=== PATIENT | female | born 1995 | race Caucasian/White ===

== ENCOUNTER → 2016-09-01 | Outpatient (CLI) | payer OTHER ==
[2016-07-07 09:24] VITALS: BP 101/57
[~2016-09-01] MED LIST: KETO10TA PO; ONDA4TAB10 SL; OXYC10TA PO
[2016-09-01 17:25] LABS: FREE T4 1.01 ng/dL (0.76-1.46)
== END | disposition home or self-care (01) ==
LOC: LAB 16:06
PROVIDERS: ATTEND Obstetrics & Gynecology
DX: N76.0 Acute vaginitis (principal)
CPT/HCPCS: 36415; 84439; 84443

== ENCOUNTER → 2016-09-30 | Outpatient (CLI) | payer OTHER ==
[2016-07-07 09:24] VITALS: BP 101/57
[2016-09-30 10:45] LABS: BASO % 0 % (0-3); EOS % 1 % (0-3); HEMOGLOBIN 14.5 g/dL (12.0-15.5); LYMPH # 2.3 x10^3/uL (1.0-4.8); LYMPH % 35 % (24-48); MEAN CORPUSCULAR HEMOGLOBIN 30 pg (25-35); MEAN CORPUSCULAR HGB CONC 34 g/dL (31-37); MEAN CORPUSCULAR VOLUME 87 fL (79-100); MONO % 5 % (0-9); NEUT % 59 % (31-73); PLATELET COUNT 228 x10^3/uL (140-400); RED BLOOD COUNT 4.92 x10^6/uL (3.50-5.40); RED CELL DISTRIBUTION WIDTH 12.9 % (11.5-14.5); WHITE BLOOD COUNT 6.7 x10^3/uL (4.0-11.0)
[2016-09-30 11:10] LABS: ALBUMIN 4.1 g/dL (3.4-5.0); ALBUMIN/GLOBULIN RATIO 1.1 (1.0-1.7); CALCIUM 9.3 mg/dL (8.5-10.1); CREATININE 0.8 mg/dL (0.6-1.0); GFR 90.5; POTASSIUM 4.2 mmol/L (3.5-5.1); TOTAL BILIRUBIN 0.6 mg/dL (0.2-1.0); TOTAL PROTEIN 7.9 g/dL (6.4-8.2)
== END | disposition home or self-care (01) ==
LOC: LAB 10:03
PROVIDERS: ATTEND Family Medicine
DX: F41.9 Anxiety disorder, unspecified (principal)
CPT/HCPCS: 36415; 80053; 85027

== ENCOUNTER → 2017-08-08 | Outpatient (CLI) | payer OTHER | END | disposition home or self-care (01) | LOC: US 10:22 | DX: O26.842 Uterine size-date discrepancy, second trimester (principal); Z3A.17 17 weeks gestation of pregnancy | CPT/HCPCS: 76805 ==

== ENCOUNTER → 2017-10-04 | Outpatient (CLI) | payer OTHER ==
[2017-10-04 11:05] LABS: ADD MAN DIFF? NO
[2017-10-04 11:17] LABS: BASO % 0 % (0-3); EOS % 0 % (0-3); HEMATOCRIT 32.5 % (36.0-47.0); HEMOGLOBIN 10.9 g/dL (12.0-15.5); LYMPH # 1.4 x10^3/uL (1.0-4.8); LYMPH % 18 % (24-48); MEAN CORPUSCULAR HEMOGLOBIN 30 pg (25-35); MEAN CORPUSCULAR HGB CONC 33 g/dL (31-37); MEAN CORPUSCULAR VOLUME 90 fL (79-100); MONO # 0.4 x10^3/uL (0.0-1.1); MONO % 5 % (0-9); NEUT # 6.1 x10^3uL (1.8-7.7); NEUT % 77 % (31-73); PLATELET COUNT 144 x10^3/uL (140-400); RED BLOOD COUNT 3.62 x10^6/uL (3.50-5.40); RED CELL DISTRIBUTION WIDTH 14.2 % (11.5-14.5); WHITE BLOOD COUNT 7.9 x10^3/uL (4.0-11.0)
== END | disposition home or self-care (01) ==
LOC: US 09:11
DX: O09.92 Supervision of high risk pregnancy, unspecified, second trimester (principal); O26.842 Uterine size-date discrepancy, second trimester; Z3A.26 26 weeks gestation of pregnancy
CPT/HCPCS: 36415; 76805; 82950; 85025

== ENCOUNTER → 2018-04-02 | Outpatient (CLI) | payer OTHER ==
[2018-01-17 14:00] VITALS: BP 114/62
[~2018-04-02] MED LIST changes: +IBUP800T19 PO; +OXYC1TAB7 PO; +PREN1TAB PO; +PREN1TAB58 PO
== END | disposition home or self-care (01) ==
LOC: LAB 15:43
PROVIDERS: ATTEND Obstetrics & Gynecology
DX: N91.1 Secondary amenorrhea (principal); F41.9 Anxiety disorder, unspecified; F32.9 Major depressive disorder, single episode, unspecified; Z79.899 Other long term (current) drug therapy; Z88.8 Allergy status to other drugs, medicaments and biological substances
CPT/HCPCS: 36415; 84144; 84702

== ENCOUNTER → 2018-04-25 | Outpatient (CLI) | payer OTHER ==
[2018-01-17 14:00] VITALS: BP 114/62
[2018-04-25 16:43] LABS: BASO % 0 % (0-3); EOS % 0 % (0-3); HEMATOCRIT 33.7 % (36.0-47.0); HEMOGLOBIN 11.4 g/dL (12.0-15.5); LYMPH # 1.1 x10^3/uL (1.0-4.8); LYMPH % 17 % (24-48); MEAN CORPUSCULAR HEMOGLOBIN 29 pg (25-35); MEAN CORPUSCULAR HGB CONC 34 g/dL (31-37); MEAN CORPUSCULAR VOLUME 85 fL (79-100); MONO # 0.4 x10^3/uL (0.0-1.1); MONO % 6 % (0-9); NEUT # 5.2 x10^3uL (1.8-7.7); NEUT % 77 % (31-73); PLATELET COUNT 199 x10^3/uL (140-400); RED BLOOD COUNT 3.98 x10^6/uL (3.50-5.40); RED CELL DISTRIBUTION WIDTH 13.7 % (11.5-14.5); WHITE BLOOD COUNT 6.7 x10^3/uL (4.0-11.0)
[2018-04-25 16:52] LABS: BILIRUBIN,URINE NEGATIVE (NEG); CLARITY,URINE CLEAR; COLOR,URINE YELLOW; NITRITE,URINE NEGATIVE (NEG); PROTEIN,URINE NEGATIVE (NEG-TRACE); UROBILINOGEN,URINE 0.2 mg/dL (0.2 mg/dL)
[2018-04-25 17:07] LABS: BACTERIA,URINE FEW /HPF (0-FEW); RBC,URINE 0 /HPF (0-2); SQUAMOUS EPITHELIAL CELL,UR FEW /LPF; WBC,URINE 0 /HPF (0-4)
== END | disposition home or self-care (01) ==
LOC: LAB 16:02
PROVIDERS: ATTEND Family Medicine
DX: Z32.01 Encounter for pregnancy test, result positive (principal)
CPT/HCPCS: 36415; 81001; 85025; 86592; 86703; 86706; 86762; 86850; 86900; 86901; 87340

== ENCOUNTER → 2018-07-05 | Outpatient (CLI) | payer OTHER ==
[2018-01-17 14:00] VITALS: BP 114/62
--- NOTE | 2018-07-05 10:04 | RAD ---
Indication:SIZE AND DATE DISCREPANCY TECHNIQUE: Ultrasound OB more than or equal to 14 weeks. COMPARISON: Previous exam from 01/06/2018. FINDINGS: Single intrauterine seen in cephalic presentation. The cervical length measures 5 cm and is closed. Placenta is fundal and anterior in location. The femoral length measures 3.1 cm corresponding to gestation age of 19 weeks 5 days. The biparietal diameter measures 4.7 cm corresponding to gestation age of 20 weeks 1 day. The head circumference measures 17.1 cm corresponding to gestation age of 19 weeks 5 days. Abdominal circumference measures 13.8 cm corresponding to gestation age of 19 weeks 2 days. Heart rate 137 bpm. Bilateral kidneys are seen. Three-vessel cord insertion is seen. Bladder is seen. Three-vessel cord is seen. Spine is seen. Face is seen. Estimated weight of 297 g +/- 44 g. IMPRESSION: Single live viable intrauterine with estimated gestation age of 19 weeks 5 days and due date of 11/24/2018. Electronically signed by: Michael Ortiz DO (07/05/2018 10:00 AM) [facility]
== END | disposition home or self-care (01) ==
LOC: US 09:25
PROVIDERS: ATTEND Obstetrics & Gynecology
DX: O26.842 Uterine size-date discrepancy, second trimester (principal); Z3A.19 19 weeks gestation of pregnancy
CPT/HCPCS: 76805

== ENCOUNTER → 2018-09-05 | Outpatient (CLI) | payer OTHER ==
[2018-01-17 14:00] VITALS: BP 114/62
[~2018-09-05] MED LIST changes: +DOCU-109 PO
[2018-09-05 14:42] LABS: BASO % 0 % (0-3); EOS # 0.1 x10^3/uL (0.0-0.7); EOS % 1 % (0-3); HEMATOCRIT 28.6 % (36.0-47.0); HEMOGLOBIN 9.6 g/dL (12.0-15.5); LYMPH # 1.5 x10^3/uL (1.0-4.8); LYMPH % 21 % (24-48); MEAN CORPUSCULAR HEMOGLOBIN 29 pg (25-35); MEAN CORPUSCULAR HGB CONC 34 g/dL (31-37); MEAN CORPUSCULAR VOLUME 87 fL (79-100); MONO # 0.5 x10^3/uL (0.0-1.1); MONO % 6 % (0-9); NEUT # 5.4 x10^3uL (1.8-7.7); NEUT % 73 % (31-73); PLATELET COUNT 178 x10^3/uL (140-400); RED BLOOD COUNT 3.29 x10^6/uL (3.50-5.40); RED CELL DISTRIBUTION WIDTH 12.9 % (11.5-14.5); WHITE BLOOD COUNT 7.5 x10^3/uL (4.0-11.0)
== END | disposition home or self-care (01) ==
LOC: LAB 12:52
PROVIDERS: ATTEND Obstetrics & Gynecology
DX: O09.93 Supervision of high risk pregnancy, unspecified, third trimester (principal); Z3A.28 28 weeks gestation of pregnancy
CPT/HCPCS: 36415; 82950; 85025

== ENCOUNTER 2018-11-21 22:32 | Inpatient (IN) | payer OTHER ==
[~2018-11-21] VITALS: Ht 160 cm; Wt 75.3 kg
[~2018-11-21 22:32] MED LIST changes: -DOCU-109 PO; +L&D EPIDURAL 50 ML SYRINGE. ONE; +OXYTOCIN PREMIX 30 UNIT/500 ML BAG. IV ONE; +ROPIVacaine 0.2% PF 10 ML VIAL. ONE
[2018-11-21] MEDS: IV RINGERS,LACTATED 1000ML 1,000 ML IV SCH (23:00)
[2018-11-21] MEDS ORDERED: TERBUTALINE 1 MG/ML VIAL. SQ PRN (23:00)
[2018-11-21] MEDS ORDERED: OXYTOCIN 30 UNIT/500 ML PREMIX 500 ML IV PRN (23:00)
[2018-11-21] MEDS ORDERED: 0.9 % SODIUM CHLORIDE 10 ML DISP.SYRIN. IV PRN (23:00)
[2018-11-21] MEDS ORDERED: NALBUPHINE 10 MG/ML AMPUL. IV PRN (23:00)
[2018-11-21] MEDS ORDERED: fentaNYL PF VIAL 100 MCG/2 ML VIAL IV PRN (23:00)
[2018-11-21] MEDS ORDERED: LIDOCAINE 1% PF 30 ML VIAL. INJ PRN (23:00)
[2018-11-21 23:20] LABS: BASO % 0 % (0-3); EOS % 0 % (0-3); HEMATOCRIT 30.4 % (36.0-47.0); LYMPH # 1.4 x10^3/uL (1.0-4.8); LYMPH % 13 % (24-48); MEAN CORPUSCULAR HEMOGLOBIN 26 pg (25-35); MEAN CORPUSCULAR HGB CONC 33 g/dL (31-37); MEAN CORPUSCULAR VOLUME 81 fL (79-100); MONO # 0.7 x10^3/uL (0.0-1.1); MONO % 6 % (0-9); NEUT # 9.1 x10^3uL (1.8-7.7); NEUT % 81 % (31-73); PLATELET COUNT 159 x10^3/uL (140-400); RED BLOOD COUNT 3.77 x10^6/uL (3.50-5.40); RED CELL DISTRIBUTION WIDTH 15.1 % (11.5-14.5); WHITE BLOOD COUNT 11.2 x10^3/uL (4.0-11.0)
[2018-11-21] MEDS ORDERED: ONDANSETRON PF 4 MG/2 ML VIAL. IV PRN (23:30)
[2018-11-21] MEDS ORDERED: L&D EPIDURAL SYRINGE 50 ML ONE (23:56)
[2018-11-21] MEDS ORDERED: ROPIVacaine 0.2% PF 10 ML VIAL. ONE (23:56)
[2018-11-22] MEDS: IV RINGERS,LACTATED 1000ML 1,000 ML IV SCH ×6 (00:16→23:00)
[2018-11-22] MEDS ORDERED: ROPIVacaine 0.2% IN 0.9%NACL PF 40 MG/20 ML DISP.SYRIN. EPI PRN (00:30)
[2018-11-22] MEDS ORDERED: ePHEDrine PF IN SALINE 50 MG/10 ML SYRINGE. IV PRN (00:30)
[2018-11-22] MEDS ORDERED: L&D EPIDURAL CASSETTE 100 ML EPID PRN (00:30)
[2018-11-22] MEDS ORDERED: NALOXONE 0.4 MG/ML VIAL. IV PRN (00:30)
[2018-11-22 02:00] VITALS: BP 127/84
--- NOTE | 2018-11-22 03:11 | PDOC1 ---
OB - History Hx of Present Care: Good Care Ultrasounds: Normal mid trimester US Obstetrical Complications: None Medical Complications: None Past Family/Social History * Past Medical, Surgical, Family and Obstetric Histories reviewed from chart. Rubella: Immune RPR/VDRL: Negative GBS Status: Negative HBsAG: Negative OB - Chief Complaint & HPI Date of Admission: Date of Admission: November 21, 2018 at 22:32 Chief Complaint/History : 2 Para: 1 EGA: 39 Reason for admission: active labor Admission Nurse Assessment Rev: Yes OB - Admission Exam Physical Exam Vitals: VS - Last 72 Hours, by Label Date Time Temp Pulse Resp B/P (MAP) Pulse Ox O2 Delivery O2 Flow Rate FiO2 11/21/18 23:34 Room Air HEENT: Normal Heart: Regular Rate Lungs: Clear Abdomen: Gravid, Non tender, Soft Extremities: Edema Reflexes: Normal Cervical Dilatation: 7cm Effacement: 75% Station: -2 Membranes: Intact Heart Rate: Normal Accelerations: Accelerations Present Decelerations: No decelerations Contractions on Admission: < 5 Minutes Apart Intensity: Firm Text A: 39 wks IUP Active labor P: Admit for labor management. COLIN PARK Jr, MD November 22, 2018 03:11
--- NOTE | 2018-11-22 03:13 | PDOC ---
VAGINAL DELIVERY DATE DATE: 11/22/18 TIME: 03:12 : 2 Para: 2 EGA: 39 VAGINAL DELIVERY: VTX VACCUM ASSISTED: No PLACENTA: Spontaneous 9/9 SEX: Female WEIGHT Weight [ 3580 gm] Nuchal Cord: No Amniotic Fluid: Thin Meconium PAIN: Epidural EPISIOTOMY: No EXTENSION: Yes (2nd degree midline laceration) REPAIRED WITH 2-0 vicryl EBL 300 ml COMPLICATIONS none CONDITION pt. stable Signs of Intrauterine Infectio: None Shoulder Dystocia: No COLIN PARK Jr, MD November 22, 2018 03:13
[2018-11-22] MEDS ORDERED: PHENYLEPH/MINERAL OIL/PETROLAT RECTAL OINTMENT 28GM TUBE. RC PRN (03:15)
[2018-11-22] MEDS ORDERED: BENZOCAINE 20% TOPICAL AEROSOL SPRAY 57GM CAN. TP PRN (03:15)
[2018-11-22] MEDS ORDERED: OXYTOCIN 30 UNIT/500 ML PREMIX 500 ML IV PRN (03:15)
[2018-11-22] MEDS ORDERED: ACETAMINOPHEN 325 MG TABLET. PO PRN (03:15)
[2018-11-22] MEDS ORDERED: MAG HYDROX/ALUMINUM HYD/SIMETH 30 ML ORAL.SUSP PO PRN (03:15)
[2018-11-22] MEDS ORDERED: diphenhydrAMINE HCL 25 MG CAPSULE PO PRN (03:15)
[2018-11-22] MEDS ORDERED: MMR per PROTOCOL. MC PRN (03:15)
[2018-11-22] MEDS ORDERED: 0.9 % SODIUM CHLORIDE 10 ML DISP.SYRIN. IV PRN (03:15)
[2018-11-22] MEDS ORDERED: HYDROCORTISONE 1% TOPICAL OINTMENT 30GM TUBE. TP PRN (03:15)
[2018-11-22] MEDS ORDERED: SIMETHICONE 80 MG TAB.CHEW PO PRN (03:15)
[2018-11-22] MEDS ORDERED: ZOLPIDEM 5 MG TABLET. PO PRN (03:15)
[2018-11-22 06:20] VITALS: BP 96/60
[2018-11-22] MEDS: oxyCODONE/APAP 5/325 1 TAB TABLET PO PRN ×2 (14:30→22:08)
[2018-11-22] MEDS: DOCUSATE SODIUM 100 MG CAPSULE. PO PRN (17:34)
[2018-11-22] MEDS: IBUPROFEN 400 MG TABLET. PO PRN (17:34)
[2018-11-22 22:30] VITALS: BP 103/66
[2018-11-23] MEDS: IV RINGERS,LACTATED 1000ML 1,000 ML IV SCH ×6 (00:30→23:00)
[2018-11-23] MEDS: oxyCODONE/APAP 5/325 1 TAB TABLET PO PRN ×4 (00:31→22:06)
[2018-11-23] MEDS: IBUPROFEN 400 MG TABLET. PO PRN ×3 (04:10→22:06)
[2018-11-23 05:15] LABS: BASO % 0 % (0-3); EOS # 0.1 x10^3/uL (0.0-0.7); EOS % 1 % (0-3); HEMOGLOBIN 10.4 g/dL (12.0-15.5); LYMPH # 2.2 x10^3/uL (1.0-4.8); LYMPH % 23 % (24-48); MEAN CORPUSCULAR HEMOGLOBIN 27 pg (25-35); MEAN CORPUSCULAR HGB CONC 33 g/dL (31-37); MEAN CORPUSCULAR VOLUME 82 fL (79-100); MONO # 0.5 x10^3/uL (0.0-1.1); MONO % 5 % (0-9); NEUT # 6.8 x10^3uL (1.8-7.7); NEUT % 71 % (31-73); PLATELET COUNT 158 x10^3/uL (140-400); WHITE BLOOD COUNT 9.6 x10^3/uL (4.0-11.0)
[2018-11-23 05:57] VITALS: BP 100/75
--- NOTE | 2018-11-23 08:27 | PDOC ---
OB Progress Note Date of Service 11/23/18 Time of Evaluation 0825 Notes Pt. feeling well. Pain controlled. Breast feeding. Lab Laboratory Tests Test 11/21/18 11:05 11/23/18 05:00 White Blood Count 11.2 x10^3/uL (4.0-11.0) 9.6 x10^3/uL (4.0-11.0) Red Blood Count 3.77 x10^6/uL (3.50-5.40) 3.80 x10^6/uL (3.50-5.40) Hemoglobin 10.0 g/dL (12.0-15.5) 10.4 g/dL (12.0-15.5) Hematocrit 30.4 % (36.0-47.0) 31.0 % (36.0-47.0) Mean Corpuscular Volume 81 fL (79-100) 82 fL (79-100) Mean Corpuscular Hemoglobin 26 pg (25-35) 27 pg (25-35) Mean Corpuscular Hemoglobin Concent 33 g/dL (31-37) 33 g/dL (31-37) Red Cell Distribution Width 15.1 % (11.5-14.5) 15.0 % (11.5-14.5) Platelet Count 159 x10^3/uL (140-400) 158 x10^3/uL (140-400) Neutrophils (%) (Auto) 81 % (31-73) 71 % (31-73) Lymphocytes (%) (Auto) 13 % (24-48) 23 % (24-48) Monocytes (%) (Auto) 6 % (0-9) 5 % (0-9) Eosinophils (%) (Auto) 0 % (0-3) 1 % (0-3) Basophils (%) (Auto) 0 % (0-3) 0 % (0-3) Neutrophils # (Auto) 9.1 x10^3uL (1.8-7.7) 6.8 x10^3uL (1.8-7.7) Lymphocytes # (Auto) 1.4 x10^3/uL (1.0-4.8) 2.2 x10^3/uL (1.0-4.8) Monocytes # (Auto) 0.7 x10^3/uL (0.0-1.1) 0.5 x10^3/uL (0.0-1.1) Eosinophils # (Auto) 0.0 x10^3/uL (0.0-0.7) 0.1 x10^3/uL (0.0-0.7) Basophils # (Auto) 0.0 x10^3/uL (0.0-0.2) 0.0 x10^3/uL (0.0-0.2) Treponema pallidum Antibody Nonreactive (Nonreactive) Laboratory Tests Test 11/23/18 05:00 White Blood Count 9.6 x10^3/uL (4.0-11.0) Red Blood Count 3.80 x10^6/uL (3.50-5.40) Hemoglobin 10.4 g/dL (12.0-15.5) Hematocrit 31.0 % (36.0-47.0) Mean Corpuscular Volume 82 fL (79-100) Mean Corpuscular Hemoglobin 27 pg (25-35) Mean Corpuscular Hemoglobin Concent 33 g/dL (31-37) Red Cell Distribution Width 15.0 % (11.5-14.5) Platelet Count 158 x10^3/uL (140-400) Neutrophils (%) (Auto) 71 % (31-73) Lymphocytes (%) (Auto) 23 % (24-48) Monocytes (%) (Auto) 5 % (0-9) Eosinophils (%) (Auto) 1 % (0-3) Basophils (%) (Auto) 0 % (0-3) Neutrophils # (Auto) 6.8 x10^3uL (1.8-7.7) Lymphocytes # (Auto) 2.2 x10^3/uL (1.0-4.8) Monocytes # (Auto) 0.5 x10^3/uL (0.0-1.1) Eosinophils # (Auto) 0.1 x10^3/uL (0.0-0.7) Basophils # (Auto) 0.0 x10^3/uL (0.0-0.2) Medications Current Medications Sodium Chloride (Normal Saline Flush) 3 ml QSHIFT PRN IV AFTER MEDS AND BLOOD DRAWS; Start 11/21/18 at 23:00 Ringer's Solution 1,000 ml @ 125 mls/hr Q8H IV Last administered on 11/22/18at 00:16; Start 11/21/18 at 23:00 Nalbuphine HCl (Nubain) 10 mg PRN Q1HR PRN IV Severe labor pain; Start 11/21/18 at 23:00 Fentanyl Citrate (Fentanyl 2ml Vial) 100 mcg PRN Q30MIN PRN IV Severe pain Last administered on 11/21/18at 23:34; Start 11/21/18 at 23:00 Terbutaline Sulfate (Brethine) 0.25 mg 1X PRN PRN SQ SEE COMMENTS; Start 11/21/18 at 23:00; Stop 11/22/18 at 22:59; Status DC Lidocaine HCl (Xylocaine 1% Pf 30ml Vial) 30 ml 1X PRN PRN INJ SEE COMMENTS; Start 11/21/18 at 23:00; Stop 11/23/18 at 22:59 Oxytocin/Sodium Chloride 500 ml @ 0 mls/hr CONT PRN PRN IV Post delivery bleeding; Start 11/21/18 at 23:00 Ondansetron HCl (Zofran) 8 mg PRN Q8HRS PRN IV NAUSEA/VOMITING Last administered on 11/21/18at 23:33; Start 11/21/18 at 23:30 Ropivacaine (Naropin 0.2%) 10 ml STK-MED ONCE .ROUTE ; Start 11/21/18 at 23:56; Stop 11/21/18 at 23:57; Status DC Ropivacaine/ Fentanyl/NS 50 ml @ As Directed STK-MED ONCE .ROUTE ; Start 11/21/18 at 23:56; Stop 11/21/18 at 23:57; Status DC Ropivacaine/ Fentanyl/NS 100 ml @ 14 mls/hr CONT PRN EPID PAIN; Start 11/22/18 at 00:30; Stop 11/22/18 at 23:29; Status DC Ringer's Solution 1,000 ml @ 125 mls/hr Q8H IV ; Start 11/22/18 at 00:30 Ephedrine Sulfate (ePHEDrine PF IN SALINE SYRINGE) 10 mg PRN Q2MIN PRN IV IF SBP<90; Start 11/22/18 at 00:30 Naloxone HCl (Narcan) 0.04 mg PRN Q1MIN PRN IV SEE COMMENTS; Start 11/22/18 at 00:30 Ropivacaine/ Sodium Chloride (ROPIVacaine 0.2% - 0.9%NACL PF) 40 mg PRN 1X PRN EPI SEE COMMENTS; Start 11/22/18 at 00:30 Sodium Chloride (Normal Saline Flush) 10 ml QSHIFT PRN IV AFTER MEDS AND BLOOD DRAWS; Start 11/22/18 at 03:15 Oxytocin/Sodium Chloride 500 ml @ 62.5 mls/hr CONT PRN IV SEE I/O RECORD; Start 11/22/18 at 03:15; Stop 11/22/18 at 11:14; Status DC Acetaminophen (Tylenol) 650 mg PRN Q6HRS PRN PO MILD PAIN / TEMP; Start 11/22/18 at 03:15 Ibuprofen (Motrin) 800 mg PRN Q8HRS PRN PO INFLAMMATION/PAIN PREVENTION Last administered on 11/23/18at 04:10; Start 11/22/18 at 03:15 Docusate Sodium (Colace) 100 mg PRN BID PRN PO CONSTIPATION Last administered on 11/22/18at 17:34; Start 11/22/18 at 03:15 Magnesium Hydroxide (Milk Of Magnesia) 2,400 mg PRN DAILY PRN PO CONSTIPATION; Start 11/22/18 at 03:15 Al Hydroxide/Mg Hydroxide (Mylanta Plus Xs) 30 ml PRN Q4HRS PRN PO HEARTBURN / GAS; Start 11/22/18 at 03:15 Simethicone (Gas-X) 80 mg PRN AFTMEALHC PRN PO GAS / BLOATING; Start 11/22/18 at 03:15 Diphenhydramine HCl (Benadryl) 25 mg PRN Q6HRS PRN PO ITCHING; Start 11/22/18 at 03:15 Benzocaine (Americaine) 1 spray PRN QID PRN TP TOPICAL PAIN; Start 11/22/18 at 03:15 Phenyleph/Shark Oil/Min Oil/Petrol (Preparation H) 1 leonie PRN QID PRN RC RECTAL PAIN Last administered on 11/22/18at 20:34; Start 11/22/18 at 03:15 Hydrocortisone (Cortaid) 1 leonie PRN QID PRN TP PERINEAL PAIN; Start 11/22/18 at 03:15 Ferrous Sulfate (Feosol) 325 mg BIDWMEALS PO ; Start 11/23/18 at 08:00 Zolpidem Tartrate (Ambien) 5 mg PRN QHS PRN PO INSOMNIA, MAY REPEAT X1; Start 11/22/18 at 03:15 Info (Do NOT chart on this placeholder) 1 ea 1X PRN PRN MC SEE COMMENTS; Start 11/22/18 at 03:15 Info (Do NOT chart on this placeholder) 1 ea 1X PRN PRN MC SEE COMMENTS; Start 11/22/18 at 03:15 Oxycodone/ Acetaminophen (Percocet 5/325) 2 tab PRN Q4HRS PRN PO MODERATE PAIN, SEVERE PAIN Last administered on 11/23/18at 04:10; Start 11/22/18 at 03:15 Ropivacaine/ Fentanyl/NS (Lajeysbd-Glzxj-VN 3 Mcg-0.1%) 50 ml STK-MED ONCE .ROUTE ; Start 11/21/18 at 01:00; Stop 11/22/18 at 08:44; Status DC Ropivacaine (Naropin 0.2%) 10 ml STK-MED ONCE .ROUTE ; Start 11/21/18 at 01:00; Stop 11/22/18 at 08:44; Status DC Oxytocin/Sodium Chloride (Oxytocin Premix Infusion) 30 unit STK-MED ONCE IV ; Start 11/21/18 at 01:00; Stop 11/22/18 at 08:44; Status DC Active Scripts Active Oxycodone-Acetaminophen 5-325 (Oxycodone Hcl/Acetaminophen) 1 Each Tablet 2 Tab PO PRN Q4HRS PRN Ibuprofen 800 Mg Tablet 800 Mg PO PRN Q8HRS PRN Zofran Odt (Ondansetron) 4 Mg Tab.rapdis 1 Tab SL Q8HRS Ketorolac Tromethamine 10 Mg Tablet 1 Tab PO PRN Q6HRS Oxycodone Hcl 10 Mg Tablet 1 Tab PO QID Reported Vitamins ( Vit W-Ca,Fe,FA(<1 mg)) 1 Each Tablet 1 Each PO Vitamins ( Vits W-Ca,Fe,Fa(<1MG)) 1 Each Tablet 1 Tab PO DAILY No Known Medications Prior To Admisstion (Info) Each 1 Each MC Exam Abd: soft, non tender, fundus firm Assessment PPD#1 s/p Plan of Care: Continue current Tx, Mgmt COLIN PARK Jr, MD November 23, 2018 08:27
[2018-11-23] MEDS: DOCUSATE SODIUM 100 MG CAPSULE. PO PRN ×2 (09:47→22:05)
[2018-11-23 12:39] VITALS: BP 94/70
[2018-11-23] MEDS: FERROUS SULFATE 325 MG TABLET. PO SCH (17:00)
[2018-11-23] MEDS ORDERED: IBUP800T19 PO (17:37)
[2018-11-23] MEDS ORDERED: OXYC1TAB7 PO (17:37)
[2018-11-23] MEDS ORDERED: DOCU-109 PO (17:37)
--- NOTE | 2018-11-23 17:38 | DISCH ---
DISCHARGE INSTRUCTIONS Condition on Discharge Condition on Discharge: Stable Activity After Discharge Activity Instructions for Disc: Activity as tolerated, Avoid exertion Lifting Instructions after Dis: No heavy lifting Driving Instructions after Dis: Do not drive today Diet after Discharge Diet after Discharge: Regular Wound Incision Care Wound/Incision Care: No wound care needed Contacting the DRDalton after DC Call your doctor for: Concerns you may have Follow-Up Follow up with: Dr. Wu in 6 wks COLIN WU Jr, MD November 23, 2018 17:38
[2018-11-23 18:15] VITALS: BP 111/66
[2018-11-23] MEDS: MAGNESIUM HYDROXIDE 2,400 MG/30 ML ORAL.SUSP. PO PRN (22:06)
[2018-11-23 23:00] VITALS: BP 111/62
[2018-11-24] MEDS: IV RINGERS,LACTATED 1000ML 1,000 ML IV SCH ×3 (00:30→08:30)
[2018-11-24] MEDS: oxyCODONE/APAP 5/325 1 TAB TABLET PO PRN ×2 (05:08→11:19)
[2018-11-24] MEDS: IBUPROFEN 400 MG TABLET. PO PRN (05:08)
[2018-11-24 05:31] VITALS: BP 100/74
[2018-11-24] MEDS: DOCUSATE SODIUM 100 MG CAPSULE. PO PRN (08:54)
[2018-11-24] MEDS: FERROUS SULFATE 325 MG TABLET. PO SCH ×2 (08:55→10:10)
[2018-11-24] MEDS: MAGNESIUM HYDROXIDE 2,400 MG/30 ML ORAL.SUSP. PO PRN (08:55)
--- NOTE | 2018-11-24 10:20 | NUR ---
home instructions gone over with pt scripts for colace,percocet,ibuprofen. No questions on home care
[2018-11-24 11:30] VITALS: BP 104/76
--- NOTE | 2018-12-19 21:49 | DS ---
DATE OF DISCHARGE: 11/24/2018 ADMITTING DIAGNOSIS: Term gestation. DISCHARGE DIAGNOSIS: Term gestation. PROCEDURE: Vaginal delivery. SURGEON: Dr. Wu. HOSPITAL COURSE: The patient presented at term gestation, delivered vaginally without any complications. She went home on day #2 in good condition. DISCHARGE DIET: Regular diet. DISCHARGE INSTRUCTIONS: Pelvic rest x 6 weeks. FOLLOWUP: The patient is to follow up in clinic in 6 weeks. COLIN WU MD DR: ELIZABETH/mellissa JOB#: [id number] / [id number]
== END 2018-11-24 13:20 | disposition home or self-care (01) | DRG 807 ==
LOC: 3 SO LND 22:32 → OBSVTOIN 22:32 → 3 SO LND 11-22 05:35
PROVIDERS: ADMIT Obstetrics & Gynecology; ATTEND Obstetrics & Gynecology
PROC: 10E0XZZ Delivery of Products of Conception, External Approach (ICD-10-PCS; principal; 2018-11-22)
PROC: 0KQM0ZZ Repair Perineum Muscle, Open Approach (ICD-10-PCS; 2018-11-22)
PROC: 00HU33Z Insertion of Infusion Device into Spinal Canal, Percutaneous Approach (ICD-10-PCS; 2018-11-22)
PROC: 3E0R3BZ Introduction of Anesthetic Agent into Spinal Canal, Percutaneous Approach (ICD-10-PCS; 2018-11-22)
DX: O77.0 Labor and delivery complicated by meconium in amniotic fluid (principal); Z37.0 Single live birth; Z3A.39 39 weeks gestation of pregnancy; O70.1 Second degree perineal laceration during delivery
CPT/HCPCS: 36415; 85025; 86592; 86850; 86900; 86901; J2405; J2590; J2795; J3010; J7120